=== PATIENT | male | born 1990 | race Hispanic/Latino ===

== ENCOUNTER 2021-12-12 12:21 | Emergency (ER) | payer SELFPAY ==
[~2021-12-12] VITALS: Ht 165.1 cm; Wt 52.2 kg
[2021-12-12 13:45] VITALS: BP 119/68
== END 2021-12-12 14:12 | disposition home or self-care (01) | DRG 601 ==
LOC: ED 12:21
DX: N62 Hypertrophy of breast (principal)

== ENCOUNTER 2023-11-20 09:40 | Emergency (ER) | payer SELFPAY ==
[~2023-11-20] VITALS: Ht 165.1 cm; Wt 63.5 kg
[2023-11-20 09:47] VITALS: BP 143/78
[2023-11-20 10:00] VITALS: BP 123/67
[2023-11-20] MEDS ORDERED: KETOROLAC TROMETHAMINE 30 MG/ML SDV IM ONE (10:05)
[2023-11-20] MEDS ORDERED: PREDNISONE50 MG PO (10:07)
[2023-11-20] MEDS ORDERED: NAPROXEN500 MG PO (10:07)
[2023-11-20] MEDS ORDERED: FLEXERIL5 M1 PO (10:07)
[2023-11-20] MEDS ORDERED: METHOCARBAMOL 500 MG/TAB PO ONE (10:10)
[2023-11-20 10:18] VITALS: BP 123/67
== END 2023-11-20 10:30 | disposition home or self-care (01) | DRG 552 ==
LOC: ED 09:40
DX: M54.42 Lumbago with sciatica, left side (principal)